=== PATIENT | female | born 1980 | race Caucasian/White ===

== ENCOUNTER 2017-07-09 18:15 | Emergency (ER) | payer BC, SELFPAY ==
[2017-07-09 18:16] VITALS: BP 138/73; PULSE 118; RESP 22; TEMP 36.7; O2SAT 100; BMI 44.2
--- NOTE | 2017-07-09 18:23 | CT_ITS ---
CT head/brain wo con HISTORY: Syncope and collapse with headache and dizziness possible, seizure ITS.REASON: questionable episode of seizure activity ORDERING PHYSICIAN: Benitez Jovel MD PATIENT AGE: 37 years COMPARISON: None TECHNIQUE: Axial images obtained without contrast. Brain and bone windows reviewed. FINDINGS: No midline shift, mass effect, intracranial hemorrhage, hydrocephalus, or extra-axial fluid collection is evident. There is a small area of slight increased density posterior to the petrous bone on the right seen on image #13. This may be due to partial volume averaging artifact. A small lesion cannot be excluded. There is also mild asymmetry in the body of the lateral ventricles right being slightly larger than the left nonspecific. The calvarium has an unremarkable appearance. No mastoid effusion. No sinus air-fluid levels.. IMPRESSION: 1. No acute intracranial findings. 2. Nonspecific hyperdensity along the anterior aspect of the cerebellum on the right posterior to the petrous bone possibly due to artifact. Small hyperdense lesion cannot be excluded. There are no old films for comparison. Follow-up CT of the posterior fossa with thin section images or MRI of the brain without and with contrast may be of further value to exclude possibility of a small lesion at this area.
[2017-07-09 19:02] LABS: Alanine Aminotransferase 27 U/L (12-78); Albumin Level 3.6 gm/dL (3.4-5.0); Alkaline Phosphatase 90 U/L (46-116); Anion Gap 12.8 mEq/L (5-15); Aspartate Amino Transferase 12 U/L (15-37); Bilirubin,Total 0.3 mg/dL (0.2-1.0); Blood Urea Nitrogen 11 mg/dL (7-18); Calcium 9.4 mg/dL (8.5-10.1); Carbon Dioxide 29 mmol/L (21.0-32.0); Chloride 103 mmol/L (98-107); Creatinine Clearance Estimated 80 mL/min (0-300); Creatinine,Serum 0.81 mg/dL (0.55-1.02); Estimated Glomerular Filt Rate 80 ml/min (>60); GFR (African American) 97 ML/MIN (>60); Globulin 3.7 gm/dl (1.3-3.2); Glucose 108 mg/dL (74-106); Potassium 3.8 mmoL/L (3.5-5.1); Sodium 141 mmol/L (136-145); Total Protein,Serum 7.3 gm/dL (6.4-8.2)
[2017-07-09 19:26] LABS: Microscopic, Urine URINE MICROSCOPIC (MICROSCOPIC)
[2017-07-09 19:29] LABS: Appearance,Urine CLEAR (Clear); Bilirubin,Urine Negative (Negative); Blood, Urine Negative (Negative); Color,Urine YELLOW (Yellow); Glucose,Urine (UA) Negative (Negative); Ketones,Urine Negative (Negative); Leukocyte Esterase,Urine Negative (Negative); Nitrate,Urine Negative (Negative); Protein,Urine Negative (Negative); Specific Gravity, Urine 1.025 (1.005-1.030); Urobilinogen,Urine 0.2 EU/dl (0.2)
[2017-07-09 19:42] LABS: Urine Pregnancy, HCG Qual. Negative (Negative)
[2017-07-09 19:43] LABS: Basophils % 0.5 % (0.1-2.0); Eosinophils % 0.6 % (0.1-12.0); Hematocrit 37.8 % (37.0-47.0); Hemoglobin 11.7 g/dL (12.2-16.2); Lymphocytes # 1.2 K/mm3 (0.7-4.5); Lymphocytes % 18.4 K/mm3 (10-50); Mean Corpuscular Hemoglobin 26.2 pg (27.0-31.2); Mean Corpuscular Volume 84.7 fl (81-99); Mean Platelet Volume 7.7 fl (7.4-10.4); Monocytes # 0.4 K/mm3 (0.1-1.0); Monocytes % 6.5 % (1.7-9.3); Neutrophils # 4.9 K/mm3 (1.8-7.8); Neutrophils % 74.1 % (37.0-80.0); Platelet Count 219 K/mm3 (142-424); Red Blood Count 4.47 M/mm3 (4.20-5.40); Red Cell Distribution Width 14.1 % (11.5-17.5); White Blood Count 6.6 K/mm3 (4.8-10.8)
[2017-07-09 19:57] LABS: Amphetamine/Metha Screen,Urine Negative ng/mL (<1000); Barbiturates Screen,Urine Negative ng/mL (<200); Benzodiazepines Screen,Urine Negative ng/mL (200); Cannabinoid Screen,Urine Negative ng/mL (<50); Cocaine Screen,Urine Negative ng/g (<300); Methadone Screen,Urine Negative ng/mL (<300); Opiate Screen,Urine Negative ng/mL (<300); Phencyclidine Screen,Urine Negative ng/mL (<25)
--- NOTE | 2017-07-09 20:26 | [facility].EDSEIZ ---
ED Disposition Clinical Impression: Syncopal episodes Qualifiers: Syncope type: unspecified Qualified Code(s): R55 - Syncope and collapse Disposition: Home, Self-Care Condition on Discharge: Good Instructions: DI for Syncope in Adults (Fainting) Additional Instructions: see pcp for addt workup and no driving at this time Referrals: Karine Nathan [Primary Care Provider] - - Critical Care Critical Care Time: No Attestation: On 07/09/17, the high probability of a clinically significant, sudden or life threatening deterioration of the following system(s) required my full and direct attention, intervention and personal management. The time I documented below is in addition to time spent performing reported procedures but includes the following listed in this critical care notation. Medical Decision Making - Medical Records Medical records reviewed: Yes: I reviewed the patient's medical records. - [place] Inquiry Pt receiving controlled substance: No Vital Signs: 07/09/17 18:16 Temperature 98.1 F Temperature Source Temporal Artery Scan Pulse Rate [Right Brachial] 118 H Respiratory Rate 22 Blood Pressure [Right Arm] 138/73 Blood Pressure Mean [Right Arm] 94 Blood Pressure Source [Right Arm] Automatic Cuff Blood Pressure Position [Right Arm] Sitting 02 Sat by Pulse Oximetry 100 Oxygen Delivery Method Room Air - Lab Data Lab results reviewed: Yes: I reviewed the patient's lab results. Lab Results 07/09/17 17:20: WBC 6.6, RBC 4.47, Hgb 11.7 L, Hct 37.8, MCV 84.7, MCH 26.2 L, MCHC 31.0 L, RDW 14.1, Plt Count 219, MPV 7.7, Neut % (Auto) 74.1, Lymph % (Auto) 18.4, Bound[place] % (Auto) 6.5, Eos % (Auto) 0.6, Baso % (Auto) 0.5, Neut # (Auto) 4.9, Lymph # (Auto) 1.2, Boundary # (Auto) 0.4, Eos # (Auto) 0.0, Baso # (Auto) 0.0 07/09/17 17:20: Sodium 141, Potassium 3.8, Chloride 103, Carbon Dioxide 29, Anion Gap 12.8, BUN 11, Creatinine 0.81, Estimated Creat Clear 80, Estimated GFR 80, Est GFR ( Amer) 97, Glucose 108 H, Calcium 9.4, Total Bilirubin 0.3, AST 12 L, ALT 27, Alkaline Phosphatase 90, Total Protein 7.3, Albumin 3.6, Globulin 3.7 H, Albumin/Globulin Ratio 1.0 L 07/09/17 19:15: Urine Color Yellow, Urine Appearance Clear, Urine pH 6.0, Ur Specific [place] 1.025, Urine Protein Negative, Urine Glucose (UA) Negative, Urine Ketones Negative, Urine Blood Negative, Urine Nitrate Negative, Urine Bilirubin Negative, Urine Urobilinogen 0.2, Ur Leukocyte Esterase Negative, Urine RBC Occasional, Urine WBC Occasional, Ur Squamous Epith Cells 10-20, Urine Bacteria 3+, Hyaline Casts Occasional 07/09/17 19:15: Urine HCG, Qual Negative 07/09/17 : Urine Opiates Screen Negative, Ur Barbituates Screen Negative, Ur Phencyclidine Scrn Negative, Ur Amphetamines Screen Negative, U Methamphetamines Scrn Negative, U Benzodiazepines Scrn Negative, Urine Cocaine Screen Negative, U Marijuana (THC) Screen Negative Result diagrams: 07/09/17 17:20 07/09/17 17:20 Orders (Tests/Meds): ORDERS Category Date Time Status CT head/brain wo con Stat Cat Scan 07/09/17 18:23 Taken Urine Culture Stat Micro 07/09/17 19:15 Received - CT Data CT Scan: Head Time Received: 20:[address] Reviewed: Yes: I have viewed the radiologist's interpretation Preliminary Findings: Normal/NAD, No Fracture Seen Seizures HPI - General Chief Complaint: Seizure Stated Complaint: possibly new onset seizure, no trauma Time Seen by Provider: 07/09/17 20:26 Mode of Arrival: EMS Source of Information: Patient, Spouse, EMS, Medical Record Limitations: No Limitations Description of Symptoms (Recalled from ER Triage Doc. by RN): states that kids came running to him stating she wouldn't respond. pt was in her vehicle slumped over and drooling. no previous seizure history. a&o and ambulatory when first responders came to scene. pt remains a&o. denies any traumatic head injury. states that she was feeling poorly earlier this date prior to her event - History o
[2017-07-09 20:41] LABS: Bacteria,Urine 3+ /lpf; Hyaline Casts,Urine Occasional #/lpf (0); RBC,Urine Occasional #/hpf (0-3); WBC,Urine Occasional #/hpf (0-3)
[2017-07-09 21:06] VITALS: BP 125/84; PULSE 69; RESP 18; TEMP 36.8; O2SAT 100
== END 2017-07-09 21:07 | disposition home or self-care (01) ==
PROVIDERS: Emergency Provider Emergency Medicine; PCP Family Medicine
DX: R55 Syncope and collapse (principal); R51 Headache; S00.211A Abrasion of right eyelid and periocular area, initial encounter
CPT/HCPCS: 36415; 70450; 80053; 80305; 81001; 81025; 85025; 87086; 93041; 99211; 99282